=== PATIENT | female | born 1965 | race Caucasian/White ===

== ENCOUNTER 2016-11-08 09:45 | Day surgery (SDC) | payer OTHER ==
--- NOTE | 2016-11-04 13:10 | PCM.ANEPRE ---
Anesthesia Pre-Op Review Reason for Review: BMI >45 ON BIOLOGIC FOR PSORIASIS Anesthesia Recommendations: Proceed with Procedure Additional Comments 51y F with post-menopausal bleeding scheduled for hysteroscopy D&C. Current listed BMI is 57 kg/m2. Underwent the same procedure in January 2015 under GETA. Record reviewed and it appears she was an easy Glidescope intubation on the Troop pillow. No further w/u. Consider MARITZA protocol. MD Damian Burrows Scott D MD Nov 04, 2016 13:10
[~2016-11-08] VITALS: Ht 161.9 cm; Wt 148.1 kg
[2016-11-08] VITALS (11 sets, daily range): BP systolic 120–147; BP diastolic 68–108; PULSE 67–84; RESP 11–18; O2SAT 93–100
[~2016-11-08 09:45] MED LIST: ADAL40KI SQ; CLOB15CR3 TOP; DOCU-41 PO; HYDR-4003 PO; IBUP800T28 PO; KETACONAZOLE TP; Lactated Ringer's 1,000 ML IV ONE; MEDR10TA PO; NYST1POW23 MC; ONDA4TAB9 PO
[2016-11-08] MEDS ORDERED: Ondansetron 2 mg/mL 2 mL Inj ONE (09:46)
[2016-11-08] MEDS ORDERED: Propofol 10,000 mCg/mL 20 mL Inj ONE (09:46)
[2016-11-08] MEDS ORDERED: MetoCLOpramide 5 mg/mL 2 mL Inj ONE (09:46)
[2016-11-08] MEDS ORDERED: Ketamine 10 mg/mL 20 mL Inj ONE (09:46)
[2016-11-08] MEDS ORDERED: Lactated Ringer's 500 ML IV PRN (12:37)
[2016-11-08] MEDS ORDERED: Lactated Ringer's 1,000 ML IV SCH (12:37)
--- NOTE | 2016-11-08 12:37 | PCM.HPANE ---
Patient Data Surgeon Admitting Provider: Attending Provider:Howard Mancia MD Primary Care Physician:Diego Berry Other Provider:Omar Kline Anesthesia Reason for Visit Post-Menopausal Bleeding Ht/WT & BMI Height (Feet): 5 Height (Inches): 3.75 Weight (Kilograms): 148.1 Body Mass Index 56.00 Allergies Coded Allergies: No Known Allergies (Verified Allergy, Unknown, 11/04/16) Past Anesthesia History Anesthesia History: Denies:: Abnormal Airway, Anesthesia Reactions, Difficult Intubation, Fam Anesthesia Reaction, Fam Malignant Hypertherm, Malignant Hyperthermia Diabetes History Hx Diabetes?: No MRSA MRSA: No Medications Hypertension Medication: No Home Meds Incl Beta Radha: No Active Scripts Ondansetron ODT (Zofran ODT)4 Mg Tablet4 Mg PO Q4H PRN For Nausea #10 TABLET Prov:Chi Tyler MD 09/05/16 Medroxyprogesterone Acetate (Provera)10 Mg Phiisy07 Mg PO DAILY #9 TABLET Prov:Chi Tyler MD 09/05/16 Reported Medications Ibuprofen 800 Mg Erypjv617 Mg PO TID PRN For Pain Ref 0 11/04/16 Hydrocodone-Acetaminophen 5-325 mg 1 Each Tablet1-2 Tablet PO Q6H PRN For Pain Ref 0 11/04/16 Docusate Sodium (Colace)100 Mg Mpgcydf233 Mg PO BID PRN For Constipation Ref 0 11/04/16 Nystatin 1 Each Powder.ea.1 Each MC BID 11/04/16 [Ketaconazole] No Conflict Check1 Applic TP DAILY 2% 11/04/16 Adalimumab (Humira)40 Mg/0.8 Ml Kit40 Mg SQ EVERY OTHER TUES 11/04/16 Clobetasol Propionate/Emoll (Clobetasol Emollient 0.05% Crm)15 Gm Cream..g.1 Appl TOP BID #1 TUBE 11/04/16 Discontinued Reported Medications Ibuprofen 200 Mg Akzbgj449 Mg PO QID PRN For Pain Ref 0 01/12/15 Terbinafine (Lamisil)250 Mg Eakbbt838 Mg PO 01/12/15 Lisinopril 10 Mg Vfvmdm31 Mg PO DAILY 30 Days Ref 0 01/12/15 History History of ENT Problems?: No HEENT History: Positive for:: Hearing Problem TMJ (sometimes) Denies:: Abnormal Airway Cataracts Difficult Intubation Dysphagia Sinus Problem Hx of Heart Problems?: Yes Cardiovascular History: Positive for:: Hypertension Denies:: AICD Abdominal Aortic Aneurism Atrial Fibrillation Cardiac Surgery Chest Pain Congestive Heart Failure Edema Heart Murmur Pacemaker Hx of Respiratory Problem?: No Respiratory History: Denies:: Asthma COPD Emphysema Oxygen Administration Pneumonia Tuberculosis Use of C-PAP Machine Hx Neurologic Problems?: No Neurological History: Denies:: CVA Headaches Multiple Sclerosis Parkinson's Disease Seizures Hx of GI Problems?: Yes Gastrointestinal History: Positive for:: Gall Bladder Disease (S/P KIKE) Denies:: Cirrhosis Diverticulitis Gastroesphageal Reflux Gastrointestinal Bleeding Heartburn Hepatitis Hiatal Hernia Rectal Bleeding Other GI Pertinent History: S/P APPY Hx of Problems?: Yes Female Hx: Denies:: Currently (POST MENOPAUSAL) Skin History: Positive for:: History Skin Disorders? (PSORIASIS, INTERTRIGO) Denies:: Pressure Ulcers Hx Musculoskeletal Problems?: Yes Musculoskeletal History: Positive for:: Osteoarthritis (C/OF ARTHROPATHY) Hx of Psycho/Social Problems?: No Hx Surgeries?: Yes (HYSTEROSCOPY/D&C,SKIN GRAFTS LT UPPER LEG,RT CTR,KIKE,APPY ,BLADDER RPR) Hx Any Other Health Problems?: Yes Other History: Denies:: Cancer Endocrine Disease Thyroid Disease History Blood Transfusions: Denies:: Blood Transfusions Hx Diabetes: No Hx Alcohol Use: NoHx Substance Use: No Smoking Status: Never Smoker Have You Smoked inLast 12 mo: No Stop/Bang Treated for Sleep Apnea?: No Do You Have a CPAP Machine?: No S-Snoring: Do You Snore Loudly: No T-Tired: feel tired, fatigued: No O-Obsered: Observed not breath: No P-Blood Pressure: treated: Yes B- Body Mass Index > 35 kg/m2: Yes A- Age over 50: Yes N- Neck Large Circumference: Yes G- Gender Male: No MARITZA Total Score: 4 MARITZA Risk Assessment: High Risk, =/>3 Yes Risk Assessment Category Category 1A: Patient has history of documented sleep apnea, and HAS NOT received any narcotic, sedative or anesthesia administration during this stay. Category 1B: Patient has history of documented sleep apnea, and HAS received any narcotic , sedative or anesthesia administration during this stay Category 2: Patient has SUSPECTED Obstructive Sleep Apnea, and HAS received any narcotic , sedative or anesthesia administration during this stay. Category 3: Patient has SUSPECTED Obstructive Sleep Apnea and HAS NOT received narcotic, sedative or anesthesia administration during this stay. Category 4: Outpatient in Procedural Areas with known sleep apnea or who screen positive for High Risk via the STOP/BANG questionnaire. Exam Exam Vital Signs Vital Signs Date Time Temp Pulse Resp B/P Pulse Ox O2 Delivery O2 Flow Rate FiO2 11/08/16 10:10 36.2 68 18 139/76 97 Room Air General Appearance: Oriented X3 HEENT/AIRWAY: MP 2 Lungs: Normal Air Movement Heart: Regular Rate/Rhythm Meds/Labs/Diagnostics Admission Meds Current Medications Lactated Ringer's (Lr) 1,000 ml @ 120 mls/hr Q8H20M ONCE IV Last administered on 11/08/16t 09:59; Start 11/08/16 at 05:00; Stop 11/08/16 at 13:19 Plan Impression Patient chart reviewed, patient interviewed and anesthestic plan with risks, benefits, and alternatives discussed, and informed consent obtained. NPO Status: 2230 11/07/16 ASA Physical Status: ASA3 Severe Disease Anesthetic Plan: GA Bene/Risks/Altern/Consents: Yes HP Complete Prior to Induction: Yes Dwight Parada MD Nov 08, 2016 12:37
[2016-11-08] MEDS ORDERED: MetoCLOpramide 5 mg/mL 2 mL Inj IVPUSH PRN (12:40)
[2016-11-08] MEDS ORDERED: EPHEDrine Sulfate 50 mg/mL Inj IVPUSH PRN (12:40)
[2016-11-08] MEDS ORDERED: Ondansetron 2 mg/mL 2 mL Inj IVPUSH PRN ×2 (12:40→14:05)
[2016-11-08] MEDS ORDERED: Phenylephrine 10,000 mCg/mL Inj IVPUSH PRN (12:40)
[2016-11-08] MEDS ORDERED: fentaNYL-PF 50 mCg/mL 2 mL Inj IVPUSH PRN (12:40)
[2016-11-08] MEDS ORDERED: Dexamethasone 4 mg/mL Inj IVPUSH PRN (12:40)
[2016-11-08] MEDS ORDERED: HYDROmorphone 1 mg/mL Inj IVPUSH PRN (12:40)
[2016-11-08] MEDS ORDERED: diphenhydrAMINE 25 mg Capsule PO PRN (14:05)
[2016-11-08] MEDS ORDERED: HYDROcodone-APAP 5-325 mg Tablet PO PRN (14:05)
--- NOTE | 2016-11-08 14:11 | PCM.DIGYN ---
Surgical Discharge Instruction Dates of Hospitalization Date of Hospital Admission 11/08/2016 Providers Admitting Physician: Primary Care Physician: Diego Berry Attending Physician: Howard Mancia MD Diagnosis at Time of Discharge Problems: (1) Endometrial polyp Status: Acute ICD Code: N84.0 (2) Postmenopausal bleeding Status: Acute ICD Code: N95.0 Diet Discharge Diet: No restrictions Activity Discharge Activity-General: Be up and about, No driving while taking narcotic, Other (Pelvic rest for 2 weeks (nothing inside vagina)) Dressing and Incisional Care Hygiene: May shower Additional Instructions Discharge Instructions You had an uncomplicated hysteroscopy with polypectomy and D&C. You should expect to have light bleeding and cramping at home. The pathology results will take 1-2 weeks to get back - I will either call you with the results or discuss them with you at your appointment in 2 weeks. Follow Up Plan Follow-up Provider (F9): Howard Mancia MD Follow-up appointment: Weeks (2), As previously arranged Call your provider for: Fever (of 100.4 or higher), Chills, Shortness of breath , Vomitting, Heavy vaginal bleeding, Increasing pain Howard Mancia MD Nov 08, 2016 14:11
--- NOTE | 2016-11-08 14:16 | PCM.SURGOP ---
Surgical Operative Report Date of Service: Nov 08, 2016 Pre Operative Diagnosis 1. Heavy postmenopausal bleeding Post Operative Diagnosis Same + several endometrial polyps/thickened endometrium Procedure: Hysteroscopy Polypectomy D&C Surgeon and Buyer Grain: Surgeon: Howard Mancia MD Assistants: None Indication for Procedure Alvina is a 51 y/o who presents today for hysteroscopy with D&C her postmenopausal bleeding. She was started on Medroxyprogesterone in the ER. Hemoglobin on 09/05/2016 was 14.8, platelets 207. We increased her dose to twice daily given the amount of bleeding and she has been able to decrease it back to daily again. 01/2015 she was taken to the OR by Dr. Jenkins for hysteroscopy polypectomy, D&C and symptoms resolved at that time. Benign tissue noted. On 09/12/2016 she had an ultrasound that shows a fibroid uterus measuring 11.6x6.9x4.7 cm. The ovaries were normal bilateral. The endometrial lining is 19mm. EMB on 09/21/2016 was benign. Findings: Endometrial cavity has thickened endometrium with several polyps. Procedure Details The patient was taken to the OR where GETA was established. She was placed in dorsal lithotomy in yellow fin stirrups. She was prepped and draped in the usual sterile fashion. A time out was performed to confirm the correct procedure and patient. A speculum was placed into the vagina and cervix visualized. A single tooth tenaculum was used to grasp on the anterior lip of the cervix. The uterus sounded to 10.5cm. The cervix was easily dilated to 8mm. The hysteroscope was passed into the cavity and cavity distended using normal saline. Polyps noted filling the cavity. Myosure used to perform polypectomy. D&C performed and again hysteroscopy performed. Difficulty was encountered viewing intrauterine at this point with hysteroscopy, so procedure ended and instruments removed. The cervix was noted to be hemostatic. Sponge, needle and instrument counts were correct x 2 at the close of the procedure. The patient tolerated the procedure well and was sent to the PACU in stable condition. IVF: 300mL Antibiotics: None indicated VTE Prophylaxis: SCDs and early and frequent ambulation Hysteroscopic fluid deficit: 550mL Complications There were no periprocedural complications identified. Surgical Specimen Removed: Yes Specimen sent to Pathology: Yes Surgical Specimen description: Endometrial polyps Anesthetic Plan: GA Grafts, Implants: None Output, Estimated Blood Loss: 10 (mL) Blood Administration during moon: No Catheters: Straight Post Operative Plan Home when stable Howard Mancia MD Nov 08, 2016 14:16
--- NOTE | 2016-11-08 14:18 | PCM.ANEP1 ---
Post Anesthesia Phase 1 PACU Phase 1 Assessment Date of Service: Nov 08, 2016 Vital Signs Vital Signs Date Time Temp Pulse Resp B/P Pulse Ox O2 Delivery O2 Flow Rate FiO2 11/08/16 14:15 78 11 136/73 99 Room Air 11/08/16 14:10 80 13 136/91 100 Simple Mask 8 11/08/16 14:08 36.2 84 13 147/108 100 Simple Mask 8 11/08/16 10:10 36.2 68 18 139/76 97 Room Air Anesthetic Administered: GA Level of Alertness: Awake, talking Pain: No Nausea or Vomiting: No Lungs: Normal Air Movement Dwight Paraad MD Nov 08, 2016 14:18
--- NOTE | 2016-11-08 14:19 | PCM.ANEP2 ---
Post Anesthesia Evaluation ASA/CMS Post Anesthesia VS in Patient's Normal Range?: Yes Resp Stable; Airway Patent?: Yes CV Function & Hydration Stable: Yes Mental Status Recovered?: Yes Pain control Satisfactory?: Yes N/V Control Satisfactory?: Yes Dwight Parada MD Nov 08, 2016 14:19
--- NOTE | 2016-11-09 12:07 | PATH ---
SURGICAL PATHOLOGY Attending Physician:Howard Mancia MD CASE STATUS: Signed Out PATIENT NAME: ARACELI EPPERSON PID: [id number] : 1965 DATE COLLECTED:11/08/2016 00:00 SPECIMEN: 1: Endometrium, Curettage 2: Endometrium, Biopsy CLINICAL HISTORY: POST MENOPAUSAL BLEEDING, ENDOMETRIAL POLYPS 1. ENDOMETRIAL CURETTAGE 2. ENDOMETRIAL POLYPS FINAL DIAGNOSIS: 1.ENDOMETRIAL CURETTAGE: WEAKLY PROLIFERATIVE ENDOMETRIUM. No evidence of malignancy or hyperplasia. 2.ENDOMETRIAL POLYPS: ENDOMETRIAL POLYPS WITH WEAKLY PROLIFERATIVE ENDOMETRIUM. No evidence of malignancy or hyperplasia. ICD10 code N84.0 GROSS DESCRIPTION: Received are two formalin-filled containers, both labeled with the patient' s name: 1. Received in formalin, labeled with the patient' s name and "endometrial curettage", is a collection of gaspar-brown tissue fragments measuring 0.5 x 0.5 x 0.3 cm in aggregate. All fragments are totally submitted in cassette 1A. 2. Received in formalin, labeled with the patient' s name and "endometrial polyps", is a collection of gaspar-huggins tissue fragments measuring 1.0 x 1.0 x 0.5 cm in aggregate. All fragments are totally submitted in cassette 2A. ([id number]) MICRO DESCRIPTION: See diagnosis. ICD-9 CODES: CPT CODES: 1: 95707 2: 02760 Electronically Signed Out Alex Hughes MD [facility] Pathology [facility]., [facility], [place] [address] Technical component performed at [facility], [address] [place] [address] Ave[address], [place], [address]
== END 2016-11-08 23:59 | disposition home or self-care (01) ==
LOC: SAS 09:45
PROVIDERS: ATTEND Obstetrics & Gynecology
DX: N84.0 Polyp of corpus uteri (principal); N95.0 Postmenopausal bleeding; I10 Essential (primary) hypertension; L40.9 Psoriasis, unspecified; E66.9 Obesity, unspecified; Z68.43 Body mass index [BMI] 50.0-59.9, adult; Z87.891 Personal history of nicotine dependence
CPT/HCPCS: 58558; J2175; J2250; J2405; J2765; J7120

== ENCOUNTER 2017-06-23 10:10 | Day surgery (SDC) | payer OTHER ==
[~2017-06-23] VITALS: Ht 161.9 cm; Wt 149.7 kg
[~2017-06-23 10:10] MED LIST changes: +0.9% Sodium Chloride 1,000 ML IV SCH; -DOCU-41 PO; +FLUC150T48 PO; -HYDR-4003 PO; -IBUP800T28 PO; +KEN25CR EXT; -Lactated Ringer's 1,000 ML IV ONE; -MEDR10TA PO; -ONDA4TAB9 PO; +OXYB5TAB PO; +Sodium Chloride LOK Flush 10 mL Syringe IV PRN; +fentaNYL-PF 50 mCg/mL 2 mL Inj IVPUSH PRN
[2017-06-23 10:35] VITALS: BP 116/64; PULSE 74; RESP 15; O2SAT 96
[2017-06-23 11:20] VITALS: BP 108/67; PULSE 70; RESP 16; O2SAT 95
--- NOTE | 2017-06-23 11:28 | ENDO ---
[address] [place] [address] [address] ENDOSCOPY PROCEDURE PATIENT: ARACELI EPPERSON : 1965 MR#: [id number] ADMIT: 06/23/2017 JOB ID: [id number] DATE: 06/23/2017 TYPE OF OPERATION: Colonoscopy with snare polypectomy and colonoscopy with biopsy. PREOPERATIVE DIAGNOSIS(ES): Colorectal cancer screening. POSTOPERATIVE DIAGNOSIS(ES): 1. A 5 mm sigmoid polyp removed by hot snare polypectomy. 2. A 2 mm sigmoid polyp removed by cold biopsy forceps. ANESTHESIA: 1. Fentanyl 75 mcg. 2. Versed 5 mg IV administered. COMPLICATIONS: None. BLOOD LOSS: Minimal. DESCRIPTION OF PROCEDURE: After risks and benefits were explained to the patient, informed consent was obtained. After anesthesia administered, colonoscope was then inserted from the rectum to the cecum. Mucosa carefully examined. Prep of the patient was excellent. After the procedure was done, the scope withdrawn and procedure terminated. FINDINGS: Upon inspection of the anus, no masses, hemorrhoids, ulcers, fissures that were seen. Throughout the entire examination, there was a 5 mm sigmoid polyp removed by hot snare polypectomy. There was also a 2 mm sigmoid polyp removed by cold biopsy forceps. Retroflexion was normal. IMPRESSIONS: Two polyps in total, one 5 mm in the sigmoid colon removed by hot snare polypectomy and 2 mm sigmoid colon polyp removed by cold biopsy forceps. RECOMMENDATION: Await pathology results. If tubular adenoma, then repeat colonoscopy in five years.
[2017-06-23 11:30] VITALS: BP 116/66; PULSE 72; RESP 12; O2SAT 95
[2017-06-23 11:34] VITALS: BP 112/66; PULSE 73; RESP 14; O2SAT 95
--- NOTE | 2017-06-27 11:23 | PATH ---
SURGICAL PATHOLOGY Attending Physician:Diego Lacey MD CASE STATUS: Signed Out PATIENT NAME: ARACELI EPPERSON PID: [id number] : 1965 DATE COLLECTED:06/23/2017 19:34 SPECIMEN: Colon, Polyp CLINICAL HISTORY: 1). SIGMOID POLYP FINAL DIAGNOSIS: 1.SIGMOID POLYPS, BIOPSY: HYPERPLASTIC POLYP IN 2 OF 2 FRAGMENTS. ICD10 D12.6 GROSS DESCRIPTION: The specimen is received in one formalin filled container labeled with the patient's name, labeled "sigmoid polyps" and consists of 2 portions of tissue which aggregate to 0.3 x 0.3 x 0.3 CM. The specimen is entirely submitted in one cassette. 06/23/2017DC MICRO DESCRIPTION: See diagnosis. ICD-9 CODES: CPT CODES: 1: 40341 Electronically Signed Out Catrachito Nielsen MD [facility]ology [facility]., [facility] [address], [place] [address] Technical component performed at [facility], [address] [place] [address] [address], [place], [address]
== END 2017-06-23 23:59 | disposition home or self-care (01) ==
LOC: END 10:10
PROVIDERS: ATTEND Internal Medicine Gastroenterology
DX: Z12.11 Encounter for screening for malignant neoplasm of colon (principal); K63.5 Polyp of colon; I10 Essential (primary) hypertension; R73.03 Prediabetes; M17.0 Bilateral primary osteoarthritis of knee; L40.9 Psoriasis, unspecified; E66.01 Morbid (severe) obesity due to excess calories; Z68.43 Body mass index [BMI] 50.0-59.9, adult; Z87.891 Personal history of nicotine dependence
CPT/HCPCS: 45380; G0500; J2250; J3010; J7030